=== PATIENT | male | born 1970 | race Caucasian/White ===

== ENCOUNTER 2019-11-23 07:23 | Emergency (ER) | payer MEDICAID ==
[~2019-11-23] VITALS: Ht 180.3 cm; Wt 98.6 kg
[2019-11-23 07:41] VITALS: BP 189/101
[2019-11-23] MEDS ORDERED: IBUPROFEN 600 MG TABLET ONE (07:49)
[2019-11-23] MEDS ORDERED: OXYcodone/APAP 5/325MG TABLET ONE (07:49)
[2019-11-23] MEDS ORDERED: IBUPROFEN 200 MG TABLET PO ONE (08:00)
[2019-11-23] MEDS ORDERED: OXYcodone/APAP 5/325MG TABLET PO ONE (08:00)
== END 2019-11-23 08:21 | disposition home or self-care (01) ==
LOC: ED 08:15
DX: M26.621 Arthralgia of right temporomandibular joint (principal)
CPT/HCPCS: 99283